=== PATIENT | male | born 1990 | race Caucasian/White ===

== ENCOUNTER 2022-06-02 19:12 | Emergency (ER) | payer OTHER ==
[~2022-06-02] VITALS: Ht 185.4 cm; Wt 100.0 kg
[2022-06-02 19:28] VITALS: TEMP 97.4
[2022-06-02] MEDS ORDERED: GENTAMICIN EYE D5 ML OD (20:12)
[2022-06-02 20:30] VITALS: BP 142/92; PULSE 84
== END 2022-06-02 20:30 | disposition home or self-care (01) ==
LOC: COL.ER 19:12
DX: S05.01XA Injury of conjunctiva and corneal abrasion without foreign body, right eye, initial encounter (principal); Z28.310 Unvaccinated for COVID-19; X58.XXXA Exposure to other specified factors, initial encounter